=== PATIENT | female | born 1950 | race Caucasian/White ===

== ENCOUNTER 2020-09-18 10:36 | Outpatient (CLI) | payer MEDICARE, SELFPAY ==
--- NOTE | ~2020-09-18 | XR_ITS ---
EXAMINATION: XR foot LT standing 2V, XR foot RT standing 2V DATE: 09/18/2020 11:15 INDICATION: Rheumatoid arthritis with rheumatoid factor TECHNIQUE: 1. Standing dorsal plantar and lateral views of the left foot were obtained. 2. Standing dorsal plantar and lateral views of the right foot were obtained. COMPARISON: None. FINDINGS: Valgus angulation at the left third and fourth metatarsophalangeal joints with the toes crossing over the fifth toe. Mild right hallux valgus. No fractures at either foot. Moderate osteoarthritis with n onuniform joint space narrowing and prominent lateral and dorsal sided osteophytes at the right first metatarsophalangeal joint. Mild osteoarthritis at the left first and third metatarsophalangeal joint s and several bilateral tarsometatarsal and interphalangeal joints. Prominent soft tissue swelling ab out the right first and fifth metatarsophalangeal joints, the left fifth metatarsophalangeal joint an d between the base of the left second and third toes. Small lucency with thin sclerotic margins at th e medial head of the left first proximal phalanx which could represent a degenerative subchondral cys t or chronic erosion. IMPRESSION: 1. Mild right hallux valgus with moderate osteoarthritis at the right first metatarsophalangeal joint . 2. Additional mild polyarticular osteoarthritis in both feet. 3. Small lucency at the head of the left first proximal phalanx which could represent a degenerative subchondral cyst or chronic erosion at the related to reported history of rheumatoid arthritis or cry stalline arthropathy such as gout. 4. Several prominent regions of focal soft tissue swelling in the bilateral forefeet which raises pos sibility of either tophaceous gout or potentially rheumatoid nodules. Reviewed, dictated and finalized at location A. IMPRESSION: 1. Mild right hallux valgus with moderate osteoarthritis at the right first met atarsophalangeal joint. 2. Additional mild polyarticular osteoarthritis in both feet. 3. Small lucency at the head of the left first proximal phalanx which could rep resent a degenerative subchondral cyst or chronic erosion at the related to rep orted history of rheumatoid arthritis or crystalline arthropathy such as gout. 4. Several prominent regions of focal soft tissue swelling in the bilateral for efeet which raises possibility of either tophaceous gout or potentially rheumat oid nodules.
--- NOTE | ~2020-09-18 | XR_ITS ---
EXAMINATION: HAND-KIMBERLY ARTHRITIS 3+VIEWS DATE: 09/18/2020 11:15 INDICATION: Rheumatoid arthritis with rheumatoid factor presenting with chronic bilateral hand pain. TECHNIQUE: Posteroanterior, lateral, and oblique views of the left and of the right hands as well as a ballcatchers view of both hands were obtained. COMPARISON: None. FINDINGS: Diffuse osteopenia. Bone alignment is normal. No fracture. Prominent lucency with thin sclerotic summer ins at the distal left ulna in the region of the ECU groove with overlying soft tissue swelling. 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 Polyarticular osteoarthritis characteriz ed by nonuniform joint space narrowing and/or marginal osteophytes, severe at the bilateral first car pometacarpal joints,, mild to moderate at the left radiocarpal, right triscaphe and right second and third distal interphalangeal joints and mild at the majority of the remaining joints in the bilateral hands and wrists. No other erosions identified. Scattered periarticular soft tissue swelling most pr ominent at the left third proximal interphalangeal, right fourth proximal interphalangeal and second distal interphalangeal joints. IMPRESSION: 1. Polyarticular osteoarthritis at the bilateral hands and wrists, severe at the bilateral first carp ometacarpal joints and otherwise mild to moderate . 2. Single lucency with thin sclerotic margins at the ulnar side of the distal left ulna. There is ove rlying soft tissue swelling. This could represent a chronic erosion such as in the setting of reporte d history of rheumatoid arthritis but could also be seen with gout. Reviewed, dictated and finalized at location A. IMPRESSION: 1. Polyarticular osteoarthritis at the bilateral hands and wrists, severe at th e bilateral first carpometacarpal joints and otherwise mild to moderate . 2. Single lucency with thin sclerotic margins at the ulnar side of the distal l eft ulna. There is overlying soft tissue swelling. This could represent a chron ic erosion such as in the setting of reported history of rheumatoid arthritis b ut could also be seen with gout.
[2020-09-18 11:36] LABS: Hematocrit 43.2 % (37.0-47.0); Hemoglobin 14.1 g/dL (12.0-15.0); Mean Corpuscular HGB Conc 32.6 g/dl (32-36); Mean Corpuscular Hemoglobin 31.1 pg (26-34); Mean Corpuscular Volume 95.4 fl (80-100); Mean Platelet Volume 10.1 fl (7.4-10.4); Platelet Count Result 275 k/mm3 (150-375); Red Blood Count 4.53 M/mm3 (4.2-5.4); Red Cell Distribution Width 13.7 % (11.5-14.5); White Blood Count 7.2 K/mm3 (4.5-10.0)
[2020-09-18 11:44] LABS: Add Urine Microscopic? YES; Appearance Urine Clear (Clear); Bacteria Urine Trace /hpf; Bilirubin Urine Negative (Negative); Blood Urine Negative (Negative); Calcium Oxalate Crystals Urine Present /hpf; Color Urine Yellow (Yellow); Glucose Urine UA Negative (Negative); Ketones Urine Negative (Negative); Leukocyte Esterase Ur Trace LEU/UL (Negative); Mucus Urine Few /lpf; Nitrate Urine Negative (Negative); Protein Urine 1+ mg/dL (Negative); Squamous Epithelial Cell Urine Rare /hpf (Few); Urobilinogen Urine Negative mg/dL (<2.0); WBC Urine 0-3 /hpf
[2020-09-18 11:47] LABS: Alanine Aminotransferase 16 U/L (4-35); Albumin Level 3.9 g/dL (3.5-5.1); Alkaline Phosphatase 63 U/L (38-126); Anion Gap 8 mmol/L (8-16); Aspartate Amino Transferase 25 U/L (14-36); Bilirubin,Total 0.3 mg/dL (0.2-1.3); Blood Urea Nitrogen 22 mg/dL (7-17); CRP 0.8 mg/dL (<1.0); Calcium 9.9 mg/dL (8.4-10.2); Carbon Dioxide 26 mmol/L (22-30); Chloride 107 mmol/L (98-107); Estimated Glomerular Filt Rate > 60; Glucose 96 mg/dL (65-105); Potassium 4.6 mmol/L (3.4-5.0); Sodium 141 mmol/L (137-145)
[2020-09-18 12:12] LABS: Specific Grav Ur 1.031 (1.001-1.035)
[2020-09-18 12:18] LABS: Erythrocyte Sedimentation Rate 19 mm/hr (0-20)
[2020-09-18 12:50] LABS: Hepatitis B Surface Antigen Negative (Negative)
[2020-09-18 13:07] LABS: Hepatitis B Surface Anti Res Negative; Hepatitis C Virus Antibody Negative (Negative)
[2020-09-21 12:50] LABS: NIL 0.01 IU/mL; Quantiferon TB Plus, 1T NEGATIVE (NEGATIVE)
== END 2020-09-18 10:37 | disposition home or self-care (01) ==
LOC: ANHIMG 10:40
PROVIDERS: PCP Internal Medicine; Visit Provider Internal Medicine
DX: M05.79 Rheumatoid arthritis with rheumatoid factor of multiple sites without organ or systems involvement (principal); Z11.59 Encounter for screening for other viral diseases; M19.031 Primary osteoarthritis, right wrist; M19.032 Primary osteoarthritis, left wrist; M19.041 Primary osteoarthritis, right hand; M19.042 Primary osteoarthritis, left hand; M20.11 Hallux valgus (acquired), right foot; M19.071 Primary osteoarthritis, right ankle and foot; M19.072 Primary osteoarthritis, left ankle and foot
CPT/HCPCS: 36415; 73130; 73620; 80053; 81001; 85027; 85652; 86140; 86480; 86706; 86803; 87340

== ENCOUNTER 2023-10-29 09:20 | Outpatient (CLI) | payer MEDICARE, SELFPAY ==
--- NOTE | ~2023-10-29 | US_ITS ---
Abdominal Sonogram: Real-time sonographic imaging of the abdomen was performed. Clinical History: Abdominal pain Findings: The liver appears normal with no evidence of solid mass lesion or bile duct dilatation. Ma in portal vein demonstrates normal direction of flow. Simple hepatic cyst measures 4.3 cm in diameter . The spleen is normal in size without evidence of focal lesion. The gallbladder is partially disten ded, and demonstrates multiple layering small gallstones. No definite gallbladder wall thickening. Th e common bile duct measures 10 mm. The visualized pancreas, aorta, and IVC are unremarkable. The ri ght kidney measures 9.0 cm in length and the left kidney measures 8.7 cm. There is no hydronephrosis or renal calculus. No abnormality seen in the area scanned in the right lower quadrant. Impression: Cholelithiasis. Simple hepatic cyst, as above. Reviewed, dictated and finalized at location . Impression: Cholelithiasis. Simple hepatic cyst, as above.
--- NOTE | ~2023-10-29 | US_ITS ---
Pelvic ultrasound. Clinical History: Pelvic pain Technique: Realtime transabdominal and transvaginal scanning of the pelvis was performed. Color flow Doppler and Doppler spectral analysis were performed. Findings: The uterus is nonvisualized. Neither ovary seen. No pelvic/adnexal mass seen. There is no evidence of free fluid in the cul de sac. Impression: No significant abnormality seen. Uterus and ovaries are not visualized, related to body habitus and e xtensive bowel gas shadowing presumably. Reviewed, dictated and finalized at location M. Impression: No significant abnormality seen. Uterus and ovaries are not visualized, related to body habitus and extensive bowel gas shadowing presumably.
== END 2023-10-29 09:21 ==
LOC: GOSHIMG 09:21
PROVIDERS: PCP Internal Medicine; Visit Provider Internal Medicine
DX: K80.20 Calculus of gallbladder without cholecystitis without obstruction (principal); K76.89 Other specified diseases of liver
CPT/HCPCS: 76700; 76856